=== PATIENT | female | born 1995 | race Caucasian/White ===

== ENCOUNTER 2018-05-23 23:44 | Emergency (ER) | payer BC ==
[2018-05-23 23:51] VITALS: RESP 18
[2018-05-24] MEDS ORDERED: IBUPROFEN 600 MG TAB PO STA (00:08)
[2018-05-24] MEDS ORDERED: ACETAMINOPHEN TAB 325 MG TAB PO STA (00:08)
--- NOTE | 2018-05-24 00:26 | XR ---
EXAMINATION TYPE: XR foot complete RT DATE OF EXAM: 05/24/2018 COMPARISON: NONE HISTORY: Foot pain TECHNIQUE: 3 views FINDINGS: Metatarsals are intact. I see no fracture nor dislocation. Joint spaces are normal. There a re no erosions. IMPRESSION: Negative right foot exam.
--- NOTE | 2018-05-24 00:38 | ED ---
Lower Extremity Injury HPI - General Chief Complaint: Extremity Injury, Lower Stated Complaint: R Foot Injury Time Seen by Provider: 05/23/18 23:53 Source: patient Mode of arrival: ambulatory Limitations: no limitations - History of Present Illness Initial Comments: 22-year-old female patient presents to the emergency department today for complaints of right foot pain. Patient states that around 7 PM this evening she dropped a bed frame on her foot. Patient states that she has been having pain to the dorsum of the right foot and with stepping down on the ball of her foot. Patient states she is able to ambulate, but with pain. She denies any numbness or tingling to the foot. Denies any previous foot injury. She denies any other injuries from this accident. Patient denies any headache, neck pain, back pain, chest pain, shortness of breath, dizziness, weakness, abdominal pain , nausea, vomiting, or difficulties with bowel movements or urination. She denies any chance of . - Related Data Allergies Allergy/AdvReac Type Severity Reaction Status Date / Time adhesive Allergy Rash/Hives Verified 05/23/18 23:52 amoxicillin Allergy Unknown Verified 05/23/18 23:51 Childhood clindamycin Allergy Abdominal Verified 05/23/18 23:51 Pain Penicillins Allergy Unknown Verified 05/23/18 23:51 Childhood Poultry [[place]] AdvReac Abdominal Verified 05/23/18 23:52 Pain Sulfa (Sulfonamide AdvReac Abdominal Verified 05/23/18 23:52 Antibiotics) Pain Review of Systems ROS Statement: Those systems with pertinent positive or pertinent negative responses have been documented in the HPI. ROS Other: All systems not noted in ROS Statement are negative. Past Medical History Additional Past Medical History / Comment(s): POTs History of Any Multi-Drug Resistant Organisms: None Reported Additional Past Surgical History / Comment(s): Endoscopy Past Psychological History: Anxiety, Depression Smoking Status: Current every day smoker Past Alcohol Use History: None Reported Past Drug Use History: None Reported General Exam Limitations: no limitations General appearance: alert, in no apparent distress, other (This is a well- developed, well-nourished adult female patient in no acute distress. Vital signs upon presentation are temperature 98.3F, pulse 84, respirations 18, blood pressure 126/75, pulse ox 99% on room air.) Eye exam: Present: normal appearance, PERRL, EOMI. Absent: scleral icterus, conjunctival injection, periorbital swelling Respiratory exam: Present: normal lung sounds bilaterally. Absent: respiratory distress, wheezes, rales, rhonchi, stridor Cardiovascular Exam: Present: regular rate, normal rhythm, normal heart sounds. Absent: systolic murmur, diastolic murmur, rubs, gallop, clicks Extremities exam: Present: normal inspection, full ROM, tenderness (Tenderness over the right first metatarsal and new right first MTP joint. There is mild soft tissue swelling with no ecchymosis or erythema. Skin is pink, warm, and dry. Cap refills less than 3 seconds. Pedal pulses are 2+ and equal bilaterally.), normal capillary refill. Absent: pedal edema, joint swelling, calf tenderness Neurological exam: Present: alert, oriented X3, CN II-XII intact Psychiatric exam: Present: normal affect, normal mood Skin exam: Present: warm, dry, intact, normal color. Absent: rash Course Vital Signs 05/23/18 23:47 Temperature 98.3 F Pulse Rate 84 Respiratory 18 Rate Blood Pressure 126/75 O2 Sat by Pulse 99 Oximetry Medical Decision Making - Medical Decision Making 22-year-old female patient presents to the emergency department today for evaluation of right foot pain after dropping a bed frame on it around 7 PM. Physical examination did reveal some mild soft tissue swelling and some tenderness over the first metatarsal and right first MTP joint. Patient had full range of motion and good neurovascular status. X-ray showed no acute fractures or dislocations. Did discuss findings and results with the patient. We did discuss rest, ice, and elevation. She is instructed take Tylenol and Motrin for pain relief. She is instructed to have repeat x-ray performed in 7- 10 days if pain symptoms persist. She is instructed to follow-up with her primary care physician for recheck in 1-2 days. Return parameters discussed in detail. She verbalizes understanding and agrees with this plan - Radiology Data Radiology results: report reviewed, image reviewed 3 views of the right foot are obtained. Metatarsals are intact. I see no fracture nor dislocation. Joint spaces are normal. There are no erosions. Impression by Dr. Rg shows negative right foot exam. Disposition Clinical Impression: Contusion of right foot Disposition: HOME SELF-CARE Condition: Good Instructions: Foot Contusion (ED) Additional Instructions: Rest foot. Apply ice and keep elevated. Follow up with primary care physician for recheck in 1-2 days. Have repeat xray performed in 7-10 days if pain symptoms persist. Return immediately for any new, worsening, or concerning symptoms. Is patient prescribed a controlled substance at d/c from ED?: No Referrals: Nonstaff,Physician [Primary Care Provider] - 1-2 days Time of Disposition: 00:38
[2018-05-24 01:06] VITALS: BP 106/63; PULSE 77; TEMP 98.1
== END 2018-05-24 01:06 | disposition home or self-care (01) ==
LOC: EC 23:44
DX: S90.31XA Contusion of right foot, initial encounter (principal); F17.200 Nicotine dependence, unspecified, uncomplicated; Z91.048 Other nonmedicinal substance allergy status; Z88.1 Allergy status to other antibiotic agents; Z88.0 Allergy status to penicillin; Z88.2 Allergy status to sulfonamides; Z91.018 Allergy to other foods; W20.8XXA Other cause of strike by thrown, projected or falling object, initial encounter
CPT/HCPCS: 99283

== ENCOUNTER 2018-06-02 02:09 | Emergency (ER) | payer BC ==
[2018-06-02 02:15] VITALS: BP 152/83; PULSE 114; RESP 23; TEMP 98.3
--- NOTE | 2018-06-02 02:37 | ED ---
ENT HPI - General Chief complaint: Dental/Oral Stated complaint: Dental pain Time Seen by Provider: 06/02/18 02:25 Source: patient Mode of arrival: ambulatory Limitations: no limitations - History of Present Illness Initial comments: Patient is a 22-year-old female who presents the emergency department today via private vehicle for evaluation of tooth pain. Patient reports approximately urine a half ago she fractured her tooth, she says she has had intermittent pain in that tooth since that time but she has had constant pain for the past 3 days. Patient reports that yesterday the pain became unbearable, caused her nausea and vomiting. She was evaluated an outside facility where she was given an IM injection of Toradol which she said completely resolved her tooth pain. Patient reports the pain is since come back and is persistent. Patient has tried taking Tylenol, Motrin using Orajel and warm salt water rinses with minimal relief in the pain. 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 Patient was evaluated by her business architect and has been medically cleared she's just awaiting her medical clearance paperwork to be faxed to her dentist for the tooth extraction. Patient was prescribed clindamycin by mouth at outside facility yesterday for possible infection surrounding the tooth. Patient reports the clinic by sitting gives her stomach aches that she hasn't been taking this medications. - Related Data Allergies Allergy/AdvReac Type Severity Reaction Status Date / Time adhesive Allergy Rash/Hives Verified 06/02/18 02:15 amoxicillin Allergy Unknown Verified 06/02/18 02:15 Childhood clindamycin Allergy Abdominal Verified 06/02/18 02:15 Pain Penicillins Allergy Unknown Verified 06/02/18 02:15 Childhood Poultry [[place]] AdvReac Abdominal Verified 06/02/18 02:15 Pain Sulfa (Sulfonamide AdvReac Abdominal Verified 06/02/18 02:15 Antibiotics) Pain Review of Systems ROS Statement: Those systems with pertinent positive or pertinent negative responses have been documented in the HPI. ROS Other: All systems not noted in ROS Statement are negative. Past Medical History Additional Past Medical History / Comment(s): POTs History of Any Multi-Drug Resistant Organisms: None Reported Additional Past Surgical History / Comment(s): Endoscopy Past Psychological History: Anxiety, Depression Smoking Status: Current every day smoker Past Alcohol Use History: None Reported Past Drug Use History: None Reported General Exam - General Exam Comments Initial Comments: Physical Exam GENERAL: Patient is well-developed and well-nourished. Appears very uncomfortable HENT: Normocephalic, Atraumatic. Poor dentition, multiple dental caries, fracture of tooth #15 minimal surrounding erythema EYES: PERRL, EOMI PULMONARY: Unlabored respirations. CARDIOVASCULAR: Tachycardia ABDOMEN: Nondistended SKIN: Skin is clear with no lesions or rashes and otherwise unremarkable. : Deferred NEUROLOGIC: Patient is alert and oriented x3. Moving all extremities spontaneously MUSCULOSKELETAL: Normal extremities with adequate strength and full range of motion. No lower extremity swelling or edema. No calf tenderness. PSYCHIATRIC: Normal psychiatric evaluation. Limitations: no limitations Limitations: no limitations Course Vital Signs 06/02/18 02:13 Temperature 98.3 F Pulse Rate 114 H Respiratory 23 Rate Blood Pressure 152/83 O2 Sat by Pulse 99 Oximetry Medical Decision Making - Medical Decision Making The patient was seen and evaluated, history was obtained from the patient and father bedside Patient with a fractured tooth for approximately year and half, awaiting medical clearance for dental extraction Patient with 3 days of worsening tooth pain evaluated and outside facility treated with Toradol and prescribed clindamycin Physical exam does reveal a broken tooth with possible surrounding erythema I discussed pain management options with patient including IM Toradol which she received yesterday as well as offering a dental block. Patient declined a dental block. She states that she hates feeling as though her face is numb. I had a long conversation with the patient and the father, father encouraged her to get the dental block to relieve her pain however she adamantly declined. I am Toradol was ordered Patient asking for pain medications for discharge. I eyes her that intubating will be treated with Tylenol and Motrin as well as supportive care. I again offered to block the tooth but she declined All questions pertaining to care were answered best my ability return parameters were discussed the patient was discharged home in stable condition Disposition Clinical Impression: Fracture of tooth Disposition: HOME SELF-CARE Instructions: Toothache (ED) Is patient prescribed a controlled substance at d/c from ED?: No Referrals: Nonstaff,Physician [Primary Care Provider] - 1-2 days
[2018-06-02] MEDS ORDERED: KETOROLAC 30 MG/ML 1 ML VIAL IM STA (02:46)
== END 2018-06-02 03:09 | disposition home or self-care (01) ==
LOC: EC 02:09
DX: S02.5XXA Fracture of tooth (traumatic), initial encounter for closed fracture (principal); F17.200 Nicotine dependence, unspecified, uncomplicated; Z91.048 Other nonmedicinal substance allergy status; Z88.0 Allergy status to penicillin; Z88.1 Allergy status to other antibiotic agents; Z88.2 Allergy status to sulfonamides; Z53.29 Procedure and treatment not carried out because of patient's decision for other reasons; X58.XXXA Exposure to other specified factors, initial encounter
CPT/HCPCS: 99282; 96372; J1885

== ENCOUNTER 2018-12-17 14:26 | Emergency (ER) | payer BC ==
[2018-12-17 15:07] VITALS: RESP 18
[2018-12-17 15:24] LABS: Appearance,Urine Cloudy (Clear); Bilirubin,Urine Negative (Negative); Blood,Urine Moderate (Negative); Color,Urine Yellow; Glucose,Urine (UA) Negative (Negative); Ketones,Urine Negative (Negative); Leukocyte Esterase,Urine Large (Negative); Mucus,Urine Rare /hpf; Nitrite,Urine Negative (Negative); PH, Urine 7.5 (5.0-8.0); Protein,Urine 1+ (Negative); RBC,Urine >182 /hpf (0-5); Specific Gravity,Urine 1.019 (1.001-1.035); Squamous Epithelial Cell,Urine 5 /hpf (0-4); Urobilinogen,Urine <2.0 mg/dL (<2.0)
[2018-12-17] MEDS ORDERED: cefTRIAXone 1,000 MG VIAL (IM USE) IM STA (15:46)
--- NOTE | 2018-12-17 16:43 | ED ---
Female Urogenital HPI - General Chief complaint: Urogenital Stated complaint: UTI Time Seen by Provider: 12/17/18 15:14 Source: patient Mode of arrival: ambulatory Limitations: no limitations - History of Present Illness Initial comments: 23-year-old female presenting today for dysuria urgency frequency x 1 day. Patient states that she has had urgency frequency dysuria as well as mid abdominal pressure that began at 7 AM this morning. Patient was concerned she had a urinary tract infection. Patient states she has had some vaginal discharge denies any pain with sex. Patient denies any vaginal bleeding patient denies . Patient is sexually active. Remaining review of systems negative patient has a fever or night sweats. Patient denies back pain. Remaining ROS (-). Pt appears well upon arrival. - Related Data Home Medications Medication Instructions Recorded Confirmed DULoxetine HCL [Cymbalta] 60 mg PO DAILY 12/17/18 12/17/18 Fludrocortisone [Florinef] 0.2 mg PO BID 12/17/18 12/17/18 Omeprazole 40 mg PO DAILY 12/17/18 12/17/18 Previous Rx's Medication Instructions Recorded Cephalexin [Keflex] 500 mg PO Q12HR 5 Days #10 cap 12/17/18 Allergies Allergy/AdvReac Type Severity Reaction Status Date / Time adhesive Allergy Rash/Hives Verified 12/17/18 15:25 amoxicillin Allergy Unknown Verified 12/17/18 15:25 Childhood clindamycin Allergy Abdominal Verified 12/17/18 15:25 Pain Penicillins Allergy Unknown Verified 12/17/18 15:25 Childhood Poultry [[place]] AdvReac Abdominal Verified 12/17/18 15:25 Pain Sulfa (Sulfonamide AdvReac Abdominal Verified 12/17/18 15:25 Antibiotics) Pain Review of Systems ROS Statement: Those systems with pertinent positive or pertinent negative responses have been documented in the HPI. ROS Other: All systems not noted in ROS Statement are negative. Past Medical History Additional Past Medical History / Comment(s): POTs History of Any Multi-Drug Resistant Organisms: None Reported Additional Past Surgical History / Comment(s): Endoscopy Past Psychological History: Anxiety, Depression Smoking Status: Current every day smoker Past Alcohol Use History: None Reported Past Drug Use History: None Reported General Exam - General Exam Comments Initial Comments: General: The patient is awake and alert, in no distress, and does not appear acutely ill. Eye: Pupils are equal, round and reactive to light, extra-ocular movements are intact. No nystagmus. There is normal conjunctiva bilaterally. No signs of icterus. Ears, nose, mouth and throat: There are moist mucous membranes and no oral lesions. Neck: The neck is supple, there is no tenderness or JVD. Cardiovascular: There is a regular rate and rhythm. No murmur, rub or gallop is appreciated. Respiratory: Lungs are clear to auscultation, respirations are non-labored, breath sounds are equal. No wheezes, stridor, rales, or rhonchi. Gastrointestinal: Soft, non-distended, non-tender abdomen without masses or organomegaly noted. There is no rebound or guarding present. No CVA tenderness. Bowel sounds are unremarkable. Pelvic: No external vaginal lesions. Normal female hair pattern. Imbler well rugated vaginal mucosa. No blood in vaginal vault. Small amount of scant discharge no odor. No adnexal or cervical motion tenderness. Musculoskeletal: Normal ROM, no tenderness. Strength 5/5. Sensation intact. Pulses equal bilaterally 2+. Neurological: A&O x 3. CN II-XII intact, There are no obvious motor or sensory deficits. Coordination appears grossly intact. Speech is normal. Skin: Skin is warm and dry and no rashes or lesions are noted. Psychiatric: Cooperative, appropriate mood & affect, normal judgment. Limitations: no limitations Course Vital Signs 12/17/18 12/17/18 15:03 17:40 Temperature 98.7 F 98.3 F Pulse Rate 90 101 H Respiratory 18 18 Rate Blood Pressure 107/71 120/64 O2 Sat by Pulse 97 97 Oximetry Medical Decision Making - Medical Decision Making Well appearing 23 year female presented for dysuria urgency frequency. Urinalysis reveals findings consistent with possible hemorrhagic cystitis. She'll was given 1 g of ceftriaxone and monitored in the emergency department for ALLERGIC reaction given penicillin ALLERGY of unknown reaction she states she had as a child and states she does not believe his anaphylaxis. Pt is no CVA or back tenderness. Patient has no pain to the patient of the abdomen no adnexal tenderness on pelvic exam. Patient states she has no concern for sexual transmitted disease. Cultures pending. Patient will be treated with Keflex outpatient, and f/u with primary care provider in next 1-2 days. Patient is to return for fever, back pain, or any worsening symptoms. Patient verbalizes understanding. Patient was discharged appearing well after discussing the case/care plan with Dr. Haddad. - Lab Data Lab Results 12/17/18 12/17/18 12/17/18 Range/Units 15:00 15:00 17:08 Urine Color Yellow Urine Appearance Cloudy H (Clear) Urine pH 7.5 (5.0-8.0) Ur Specific [place] 1.019 (1.001-1.035) Urine Protein 1+ H (Negative) Urine Glucose (UA) Negative (Negative) Urine Ketones Negative (Negative) Urine Blood Moderate H (Negative) Urine Nitrite Negative (Negative) Urine Bilirubin Negative (Negative) Urine Urobilinogen <2.0 (<2.0) mg/dL Ur Leukocyte Esterase Large H (Negative) Urine RBC >182 H (0-5) /hpf Urine WBC >182 H (0-5) /hpf Urine WBC Clumps Many H (None) /hpf Ur Squamous Epith Cells 5 H (0-4) /hpf Urine Mucus Rare H (None) /hpf Urine HCG, Qual Not Detected (Not Detectd) Trichomonas Ag (Rapid) Negative (Negative) Disposition Clinical Impression: UTI (urinary tract infection) Disposition: HOME SELF-CARE Condition: Good Instructions (If sedation given, give patient instructions): Urinary Tract Infection in Women (ED) Additional Instructions: Please use medication as discussed. Please follow-up with family doctor in the next 2 days. Please return to emergency room if the symptoms increase or worsen or for any other concerns. Prescriptions: Cephalexin [Keflex] 500 mg PO Q12HR 5 Days #10 cap Is patient prescribed a controlled substance at d/c from ED?: No Referrals: Nonstaff,Physician [Primary Care Provider[facility] Time of Disposition: 16:42
[2018-12-17 17:42] VITALS: BP 120/64; PULSE 101; TEMP 98.3
[2018-12-18 15:16] LABS: C. trachomatis,PCR Negative (Neg,Equiv); Chlamydia trachomatis Source Vagina
[2018-12-18 15:19] LABS: N. gonorrhoeae,PCR Negative (Neg,Equiv); Neisseria Source Vagina
== END 2018-12-17 17:42 | disposition home or self-care (01) ==
LOC: EC 14:26
DX: N39.0 Urinary tract infection, site not specified (principal); F41.9 Anxiety disorder, unspecified; F32.9 Major depressive disorder, single episode, unspecified; F17.200 Nicotine dependence, unspecified, uncomplicated; Z79.899 Other long term (current) drug therapy; Z88.0 Allergy status to penicillin; Z88.1 Allergy status to other antibiotic agents; Z88.2 Allergy status to sulfonamides; Z91.018 Allergy to other foods; Z91.048 Other nonmedicinal substance allergy status
CPT/HCPCS: 81001; 81025; 87808; 87491; 87591; 87070; 87086; 87205; 99283; 96372; J0696

== ENCOUNTER 2018-12-24 20:44 | Emergency (ER) | payer BC ==
[2018-12-24] MEDS ORDERED: ACETAMINOPHEN TAB 500 MG TAB PO STA (21:30)
--- NOTE | 2018-12-24 21:48 | ED ---
General Adult HPI - General Chief complaint: Upper Respiratory Infection Stated complaint: NVD Time Seen by Provider: 12/24/18 21:07 Source: patient Mode of arrival: ambulatory Limitations: no limitations - History of Present Illness Initial comments: Patient is a 23-year-old female presenting to emergency department with fever, chills and generalized body aches. Patient reports the symptoms started 5 days ago and is progressively increasing severity. Patient reports bilateral clear rhinorrhea, otalgia but denies sore throat. Patient reports a mild headache but states that is her baseline due to history of migraines. Patient reports intermittent mild nausea but no vomiting or diarrhea. Patient reports taking DayQuil minimal improvement. Patient reports a nonproductive dry cough that has developed over the last 3 days. Patient also states that she smokes and has asthma. Patient denies chest pain, chest tightness, chest palpitations or blurry vision. patient denies urinary or vaginal symptoms. Patient denies flank or abdominal pain. - Related Data Home Medications Medication Instructions Recorded Confirmed DULoxetine HCL [Cymbalta] 60 mg PO DAILY 12/17/18 12/24/18 Fludrocortisone [Florinef] 0.2 mg PO BID 12/17/18 12/24/18 Omeprazole 40 mg PO DAILY 12/17/18 12/24/18 ALPRAZolam [Xanax] 0.25 mg PO DAILY PRN 12/24/18 12/24/18 Cephalexin [Keflex] 500 mg PO DAILY 12/24/18 12/24/18 Previous Rx's Medication Instructions Recorded methylPREDNISolone [Medrol Dose 4 mg PO DIRECTED #1 pack 12/24/18 Pack] Allergies Allergy/AdvReac Type Severity Reaction Status Date / Time adhesive Allergy Rash/Hives Verified 12/24/18 20:58 amoxicillin Allergy Unknown Verified 12/24/18 20:58 Childhood Penicillins Allergy Unknown Verified 12/24/18 20:58 Childhood clindamycin AdvReac Abdominal Verified 12/24/18 20:58 Pain Poultry [[place]] AdvReac Abdominal Verified 12/24/18 20:58 Pain Sulfa (Sulfonamide AdvReac Abdominal Verified 12/24/18 20:58 Antibiotics) Pain Review of Systems ROS Statement: Those systems with pertinent positive or pertinent negative responses have been documented in the HPI. ROS Other: All systems not noted in ROS Statement are negative. Past Medical History Additional Past Medical History / Comment(s): POTs History of Any Multi-Drug Resistant Organisms: None Reported Additional Past Surgical History / Comment(s): Endoscopy Past Psychological History: Anxiety, Depression Smoking Status: Current every day smoker Past Alcohol Use History: None Reported Past Drug Use History: Marijuana General Exam Limitations: no limitations General appearance: alert, in no apparent distress Head exam: Present: atraumatic, normocephalic, normal inspection Eye exam: Present: normal appearance, PERRL, EOMI Pupils: Present: normal accommodation ENT exam: Present: normal exam, normal oropharynx, mucous membranes moist, TM's normal bilaterally (No bulging or erythema) Neck exam: Present: normal inspection, full ROM. Absent: lymphadenopathy Respiratory exam: Present: normal lung sounds bilaterally. Absent: wheezes, rales, rhonchi, stridor Cardiovascular Exam: Present: regular rate, normal rhythm, normal heart sounds GI/Abdominal exam: Present: soft Extremities exam: Present: normal inspection, full ROM Back exam: Present: normal inspection. Absent: CVA tenderness (R), CVA tenderness (L) Neurological exam: Present: alert, oriented X3 Psychiatric exam: Present: normal affect, normal mood Skin exam: Present: warm, intact, normal color Course Vital Signs 12/24/18 12/24/18 20:45 21:42 Temperature 102 F H Pulse Rate 107 H Respiratory 20 20 Rate Blood Pressure 111/57 O2 Sat by Pulse 97 Oximetry Medical Decision Making - Medical Decision Making Patient is a 23-year-old female presented to emergency department with fever and general body aches. Patient tested positive for influenza B. Patient will be treated with Decadron and discharged with a Medrol Dosepak. Patient advised to follow with primary care. Patient advised to stay hydrated and rest. Patient advised to return to emergency department as it is worsen. Case discussed with physician. - Lab Data Lab Results 12/24/18 Range/Units 21:28 Influenza Type A RNA Not Detected (Not Detectd) Influenza Type B (PCR) Detected H (Not Detectd) Disposition Clinical Impression: Influenza Disposition: HOME SELF-CARE Condition: Stable Instructions (If sedation given, give patient instructions): Influenza (DC) Additional Instructions: History prescribed medication as directed. Please return to emergency department if symptoms worsen. Please follow with primary care. Prescriptions: methylPREDNISolone [Medrol Dose Pack] 4 mg PO DIRECTED #1 pack Is patient prescribed a controlled substance at d/c from ED?: No Referrals: Nonstaff,Physician [Primary Care Provider] - 1-2 days Time of Disposition: 22:44
--- NOTE | 2018-12-24 21:55 | XR ---
EXAMINATION TYPE: XR chest 2V DATE OF EXAM: 12/24/2018 COMPARISON: NONE HISTORY: Cough TECHNIQUE: Frontal and lateral views of the chest are obtained. FINDINGS: Heart and mediastinum are normal. Lungs are clear. Diaphragm is normal. Bony thorax appear s normal. IMPRESSION: Normal chest.
[2018-12-24] MEDS ORDERED: DEXAMETHASONE SOD PHOSPHATE 10 MG/ML 1 ML VIAL IM STA (22:32)
[2018-12-24 23:22] VITALS: TEMP 100
[2018-12-24 23:36] VITALS: BP 136/68; PULSE 97; RESP 18
== END 2018-12-24 23:36 | disposition home or self-care (01) ==
LOC: EC 20:44
DX: J10.1 Influenza due to other identified influenza virus with other respiratory manifestations (principal); J45.909 Unspecified asthma, uncomplicated; F32.9 Major depressive disorder, single episode, unspecified; F41.9 Anxiety disorder, unspecified; F17.200 Nicotine dependence, unspecified, uncomplicated; Z88.0 Allergy status to penicillin; Z88.1 Allergy status to other antibiotic agents; Z88.2 Allergy status to sulfonamides; Z91.048 Other nonmedicinal substance allergy status; Z79.52 Long term (current) use of systemic steroids; Z79.899 Other long term (current) drug therapy; Z86.69 Personal history of other diseases of the nervous system and sense organs
CPT/HCPCS: 87502; 71046; 99283; 96372; J1100

== ENCOUNTER 2018-12-29 09:34 | Emergency (ER) | payer BC ==
[2018-12-29 09:41] VITALS: BP 120/77; TEMP 98.3
[2018-12-29] MEDS ORDERED: IPRATROPIUM-ALBUTEROL 3 ML NEB INHALATION STA (10:11)
--- NOTE | 2018-12-29 10:12 | ED ---
General Adult HPI - General Chief complaint: Upper Respiratory Infection Stated complaint: cough Time Seen by Provider: 12/29/18 10:06 Source: patient, RN notes reviewed Mode of arrival: ambulatory Limitations: no limitations - History of Present Illness Initial comments: 23-year-old female presents to the emergency department for a chief complaint of cough 1 week. Patient states that she was diagnosed with influenza a 1 week ago. States that since then she has not been able to stop coughing. States that when she gets into coughing fits she feels short of breath. Denies shortness of breath at baseline. Denies chest pain. Patient states she is no longer having any fevers. States that her roommate has pneumonia so she is concerned she could have this. Patient does admit to history of asthma as a child but has not had asthma in adult years. Patient has no other complaints at this time including shortness of breath, chest pain, abdominal pain, nausea or vomiting, headache, or visual changes. - Related Data Home Medications Medication Instructions Recorded Confirmed DULoxetine HCL [Cymbalta] 60 mg PO DAILY 12/17/18 12/29/18 Fludrocortisone [Florinef] 0.2 mg PO BID 12/17/18 12/29/18 Omeprazole 40 mg PO DAILY 12/17/18 12/29/18 ALPRAZolam [Xanax] 0.25 mg PO DAILY PRN 12/24/18 12/29/18 methylPREDNISolone [Medrol Dose See Taper PO DIRECTED 12/29/18 12/29/18 Pack] Previous Rx's Medication Instructions Recorded Albuterol Inhaler [Ventolin Hfa 1 - 2 puff INHALATION Q6HR PRN #1 12/29/18 Inhaler] inhaler Allergies Allergy/AdvReac Type Severity Reaction Status Date / Time adhesive Allergy Rash/Hives Verified 12/29/18 10:28 amoxicillin Allergy Unknown Verified 12/29/18 10:28 Childhood Penicillins Allergy Unknown Verified 12/29/18 10:28 Childhood clindamycin AdvReac Abdominal Verified 12/29/18 10:28 Pain Poultry [[place]] AdvReac Abdominal Verified 12/29/18 10:28 Pain Sulfa (Sulfonamide AdvReac Abdominal Verified 12/29/18 10:28 Antibiotics) Pain Review of Systems ROS Statement: Those systems with pertinent positive or pertinent negative responses have been documented in the HPI. ROS Other: All systems not noted in ROS Statement are negative. Past Medical History Additional Past Medical History / Comment(s): POTs History of Any Multi-Drug Resistant Organisms: None Reported Additional Past Surgical History / Comment(s): Endoscopy Past Psychological History: Anxiety, Depression Smoking Status: Current every day smoker Past Alcohol Use History: None Reported Past Drug Use History: Marijuana General Exam Limitations: no limitations General appearance: alert, in no apparent distress Head exam: Present: atraumatic, normocephalic, normal inspection Eye exam: Present: normal appearance, PERRL, EOMI. Absent: scleral icterus, conjunctival injection, periorbital swelling ENT exam: Present: normal exam, normal oropharynx, mucous membranes moist, TM's normal bilaterally, normal external ear exam Neck exam: Present: normal inspection, full ROM. Absent: tenderness, meningismus, lymphadenopathy Respiratory exam: Present: wheezes (wheezing noted right Right upper and lower lobes). Absent: respiratory distress, rales, rhonchi, stridor Cardiovascular Exam: Present: regular rate, normal rhythm, normal heart sounds. Absent: systolic murmur, diastolic murmur, rubs, gallop, clicks Neurological exam: Present: alert, oriented X3, CN II-XII intact Psychiatric exam: Present: normal affect, normal mood Course Vital Signs 12/29/18 12/29/18 12/29/18 09:40 10:33 10:45 Temperature 98.3 F Pulse Rate 85 72 76 Respiratory 24 Rate Blood Pressure 120/77 O2 Sat by Pulse 95 Oximetry 12/29/18 11:00 Temperature Pulse Rate Respiratory 20 Rate Blood Pressure O2 Sat by Pulse Oximetry Medical Decision Making - Medical Decision Making 23-year-old female presents to the emergency department for cough 1 week. Patient diagnosed with influenza a 1 week ago. Patient does have a history of asthma. It is her stable. Patient is 95% on room air. Patient is noted to be coughing. No shortness of breath or respiratory distress. On exam patient does have wheezing noted in the right lung. X-ray shows no acute cardiopulmonary process. Patient was given breathing treatment which she states helped significantly. Patient does not have an inhaler or nebulizer at home. Patient also given Decadron here given wheezing and history of asthma. Patient will be given inhaler. Patient will follow up with primary care. She has an appointment in 3 days. She'll return here if she has any worsening symptoms. Disposition Clinical Impression: Cough Disposition: HOME SELF-CARE Condition: Good Instructions (If sedation given, give patient instructions): Acute Cough (ED) Additional Instructions: Please use inhaler. Please follow-up with primary care in 1-2 days. Please return here to the emergency department if you have any worsening symptoms. Prescriptions: Albuterol Inhaler [Ventolin Hfa Inhaler] 1 - 2 puff INHALATION Q6HR PRN #1 inhaler PRN Reason: Shortness Of Breath Is patient prescribed a controlled substance at d/c from ED?: No Referrals: Nonstaff,Physician [Primary Care Provider] - 1-2 days Time of Disposition: 11:10
--- NOTE | 2018-12-29 10:42 | XR ---
EXAMINATION TYPE: XR chest 2V DATE OF EXAM: 12/29/2018 COMPARISON: 12/24/2018 HISTORY: Chest pain TECHNIQUE: Frontal and lateral views of the chest are obtained. FINDINGS: There is no focal air space opacity, pleural effusion, or pneumothorax seen. The cardiac silhouette size is within normal limits. The osseous structures are intact. IMPRESSION: No acute cardiopulmonary process.
[2018-12-29] MEDS ORDERED: DEXAMETHASONE 4 MG TAB PO STA (10:44)
[2018-12-29 10:46] VITALS: PULSE 76
[2018-12-29 11:04] VITALS: RESP 20
== END 2018-12-29 11:56 | disposition home or self-care (01) ==
LOC: EC 09:34
DX: R05 Cough (principal); R06.2 Wheezing; F32.9 Major depressive disorder, single episode, unspecified; F41.9 Anxiety disorder, unspecified; F17.200 Nicotine dependence, unspecified, uncomplicated; Z79.899 Other long term (current) drug therapy; Z88.0 Allergy status to penicillin; Z88.1 Allergy status to other antibiotic agents; Z88.2 Allergy status to sulfonamides; Z91.018 Allergy to other foods; Z91.048 Other nonmedicinal substance allergy status
CPT/HCPCS: 94640; 71046; 99283; J8540

== ENCOUNTER 2020-09-02 00:38 | Emergency (ER) | payer BC ==
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
[2020-09-02 02:36] LABS: Appearance,Urine Clear (Clear); Color,Urine Colorless
[2020-09-02 02:37] LABS: Bilirubin,Urine Negative (Negative); Blood,Urine Negative (Negative); Glucose,Urine (UA) Negative (Negative); Ketones,Urine Negative (Negative); Leukocyte Esterase,Urine Negative (Negative); Nitrite,Urine Negative (Negative); PH, Urine 5.5 (5.0-8.0); Protein,Urine Negative (Negative); Specific Gravity,Urine 1.002 (1.001-1.035); Urobilinogen,Urine <2.0 mg/dL (<2.0)
[2020-09-02 03:01] LABS: Amphetamine Screen,Urine Not Detected (NotDetected); Barbiturate Screen,Urine Not Detected (NotDetected); Benzodiazepines Screen,Urine Not Detected (NotDetected); Cocaine Screen,Urine Not Detected (NotDetected); Methadone Screen, Urine Not Detected (NotDetected); Opiate Screen,Urine Not Detected (NotDetected); Oxycodone Screen, Urine Not Detected (NotDetected); Phencyclidine Screen,Urine Not Detected (NotDetected); Tricyclic Antidepressant,Urine Not Detected (NotDetected); Urn Cannabinoid Scrn Not Detected (NotDetected)
[2020-09-02 07:33] VITALS: BP 135/72; PULSE 84; RESP 18; TEMP 97.9
== END 2020-09-02 07:28 | disposition home or self-care (01) ==
LOC: EC 00:38
DX: F43.21 Adjustment disorder with depressed mood (principal); F32.9 Major depressive disorder, single episode, unspecified; F41.9 Anxiety disorder, unspecified; Z79.899 Other long term (current) drug therapy; F17.200 Nicotine dependence, unspecified, uncomplicated; Z88.0 Allergy status to penicillin; Z88.1 Allergy status to other antibiotic agents; Z88.2 Allergy status to sulfonamides; Z91.048 Other nonmedicinal substance allergy status
CPT/HCPCS: 80306; 81003; 82075; 99285

== ENCOUNTER 2021-03-27 15:09 | Emergency (ER) | payer BC ==
[2021-03-27 15:17] VITALS: RESP 20
--- NOTE | 2021-03-27 15:43 | ED ---
General Adult HPI - General Chief complaint: Chest Pain Stated complaint: Chest Pain Time Seen by Provider: 03/27/21 15:30 Source: patient, RN notes reviewed, old records reviewed Mode of arrival: ambulatory Limitations: no limitations - History of Present Illness Initial comments: 25-year-old female presenting for evaluation of cough and nasal congestion. Patient has had symptoms for the past several days. She's also had some GI cramping. She said fever and myalgias. She's had sore throat, nasal congestion, cough, upper chest pain. No central radiating chest pain. She has been vaccinated against coronavirus in December of this year with [employer]. - Related Data Home Medications Medication Instructions Recorded Confirmed DULoxetine HCL [Cymbalta] 60 mg PO DAILY 12/17/18 12/29/18 Fludrocortisone [Florinef] 0.2 mg PO BID 12/17/18 12/29/18 Omeprazole 40 mg PO DAILY 12/17/18 12/29/18 ALPRAZolam [Xanax] 0.25 mg PO DAILY PRN 12/24/18 12/29/18 methylPREDNISolone [Medrol Dose See Taper PO DIRECTED 12/29/18 12/29/18 Pack] Previous Rx's Medication Instructions Recorded Albuterol Inhaler (Mhu) [Ventolin 1 - 2 puff INHALATION Q6HR PRN #1 12/29/18 Hfa Inhaler (Mhu)] inhaler Benzonatate [Tessalon Perles] 200 mg PO Q8H PRN #15 capsule 12/29/18 methylPREDNISolone Dose Pack 4 mg PO DIRECTED #21 packet 03/27/21 [Medrol Dose Pack] Allergies Allergy/AdvReac Type Severity Reaction Status Date / Time adhesive Allergy Rash/Hives Verified 03/27/21 15:17 amoxicillin Allergy Unknown Verified 03/27/21 15:17 Childhood Penicillins Allergy Unknown Verified 03/27/21 15:17 Childhood clindamycin AdvReac Abdominal Verified 03/27/21 15:17 Pain Poultry [[place]] AdvReac Abdominal Verified 03/27/21 15:17 Pain Sulfa (Sulfonamide AdvReac Abdominal Verified 03/27/21 15:17 Antibiotics) Pain Review of Systems ROS Statement: Those systems with pertinent positive or pertinent negative responses have been documented in the HPI. ROS Other: All systems not noted in ROS Statement are negative. Past Medical History Additional Past Medical History / Comment(s): POTs History of Any Multi-Drug Resistant Organisms: None Reported Additional Past Surgical History / Comment(s): Endoscopy Past Psychological History: Anxiety, Depression Smoking Status: Current every day smoker Past Alcohol Use History: Occasional Past Drug Use History: Marijuana General Exam Limitations: no limitations General appearance: alert, in no apparent distress Head exam: Present: atraumatic, normocephalic Eye exam: Present: normal appearance, PERRL ENT exam: Absent: normal oropharynx (Pharyngeal erythema, no tonsillar swelling or exudate, nasal congestion and rhinorrhea) Respiratory exam: Present: rhonchi (Scattered rhonchi bilaterally). Absent: respiratory distress, wheezes Cardiovascular Exam: Present: normal rhythm, tachycardia GI/Abdominal exam: Present: soft. Absent: distended, tenderness, guarding Extremities exam: Present: normal inspection, normal capillary refill. Absent: pedal edema Neurological exam: Present: alert, oriented X3, CN II-XII intact. Absent: motor sensory deficit Psychiatric exam: Present: normal affect, normal mood Skin exam: Present: warm, dry, intact. Absent: cyanosis, diaphoretic Course Vital Signs 03/27/21 15:14 Temperature 98.9 F Pulse Rate 117 H Respiratory 20 Rate Blood Pressure 134/65 O2 Sat by Pulse 98 Oximetry Medical Decision Making - Medical Decision Making 25-year-old female with cough and congestion, sore throat, viral sounding illness. Chest x-ray clear, free of pneumonia. Patient afebrile and otherwise well-appearing. Urinalysis urine and coronavirus testing is negative. Patient will be treated for an acute bronchitis likely viral in nature. Given Medrol Dosepak. - Lab Data Lab Results 03/27/21 03/27/21 03/27/21 Range/Units 15:55 15:55 16:32 Urine Color Yellow Urine Appearance Clear (Clear) Urine pH 7.0 (5.0-8.0) Ur Specific [place] 1.013 (1.001-1.035) Urine Protein Negative (Negative) Urine Glucose (UA) Negative (Negative) Urine Ketones Negative (Negative) Urine Blood Negative (Negative) Urine Nitrite Negative (Negative) Urine Bilirubin Negative (Negative) Urine Urobilinogen 2.0 (<2.0) mg/dL Ur Leukocyte Esterase Trace H (Negative) Urine RBC 1 (0-5) /hpf Urine WBC 2 (0-5) /hpf Ur Squamous Epith Cells 3 (0-4) /hpf Urine Mucus Rare H (None) /hpf Urine HCG, Qual Not Detected (Not Detectd) Coronavirus (PCR) Not Detected (Not Detectd) Disposition Clinical Impression: Bronchitis Disposition: HOME SELF-CARE Condition: Good Instructions (If sedation given, give patient instructions): Acute Bronchitis (ED) Prescriptions: methylPREDNISolone Dose Pack [Medrol Dose Pack] 4 mg PO DIRECTED #21 packet Is patient prescribed a controlled substance at d/c from ED?: No Referrals: Nonstaff,Physician [Primary Care Provider] - 1-2 days Jas Barnes [STAFF PHYSICIAN] - 1-2 days Time of Disposition: 17:15
[2021-03-27 16:03] LABS: Appearance,Urine Clear (Clear); Bilirubin,Urine Negative (Negative); Blood,Urine Negative (Negative); Color,Urine Yellow; Glucose,Urine (UA) Negative (Negative); Ketones,Urine Negative (Negative); Leukocyte Esterase,Urine Trace (Negative); Mucus,Urine Rare /hpf; Nitrite,Urine Negative (Negative); Protein,Urine Negative (Negative); RBC,Urine 1 /hpf (0-5); Specific Gravity,Urine 1.013 (1.001-1.035); Squamous Epithelial Cell,Urine 3 /hpf (0-4); WBC,Urine 2 /hpf (0-5)
--- NOTE | 2021-03-27 16:09 | XR ---
EXAMINATION TYPE: XR chest 2V DATE OF EXAM: 03/27/2021 COMPARISON: Chest x-ray December 29, 2018 HISTORY: Cough and chest pain. TECHNIQUE: Frontal and lateral views of the chest are obtained. FINDINGS: There is no suspicious focal air space opacity, pleural effusion, or pneumothorax seen. T he cardiac silhouette size is stable and within normal limits. The osseous structures are intact. IMPRESSION: No acute process. No significant change from prior.
[2021-03-27 17:47] VITALS: BP 131/88; PULSE 105; TEMP 99
== END 2021-03-27 17:48 | disposition home or self-care (01) ==
LOC: EC 15:09
DX: J40 Bronchitis, not specified as acute or chronic (principal); F17.200 Nicotine dependence, unspecified, uncomplicated; F12.90 Cannabis use, unspecified, uncomplicated; F32.9 Major depressive disorder, single episode, unspecified; F41.9 Anxiety disorder, unspecified; Z79.51 Long term (current) use of inhaled steroids; Z79.899 Other long term (current) drug therapy
CPT/HCPCS: 71046; 81001; 81025; 87635; 99285

== ENCOUNTER 2021-04-21 18:04 | Emergency (ER) | payer OTHER, BC ==
[2021-04-21 18:50] VITALS: RESP 18
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
--- NOTE | 2021-04-21 20:24 | XR ---
EXAMINATION TYPE: XR ankle complete LT DATE OF EXAM: 04/21/2021 COMPARISON: NONE HISTORY: Pain TECHNIQUE: 3 views FINDINGS: Ankle mortise is anatomic. I see no fracture nor dislocation. Joint spaces are normal. IMPRESSION: Negative left ankle exam.
--- NOTE | 2021-04-21 20:25 | XR ---
EXAMINATION TYPE: XR finger LT DATE OF EXAM: 04/21/2021 COMPARISON: NONE HISTORY: Pain TECHNIQUE: 3 views FINDINGS: I see no fracture nor dislocation. Thumb is intact. Joint spaces are normal. IMPRESSION: Negative left thumb exam. No fracture.
--- NOTE | 2021-04-21 20:27 | XR ---
EXAMINATION TYPE: XR clavicle bilateral DATE OF EXAM: 04/21/2021 COMPARISON: NONE HISTORY: Pain TECHNIQUE: 4 views FINDINGS: I see no fracture nor dislocation. There is slight widening of the left AC joint space comp ared to the right. Glenohumeral joints are intact. IMPRESSION: No fracture seen. Slight widening of the left AC joint space could relate to some ligamen tous injury of uncertain age. Joint spaces 4 mm on the left side and 2.5 mm on the right side.
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
[2021-04-21 21:20] VITALS: BP 137/77; PULSE 97; TEMP 98.6
== END 2021-04-21 21:20 | disposition home or self-care (01) ==
LOC: EC 18:04
DX: S40.012A Contusion of left shoulder, initial encounter (principal); S80.812A Abrasion, left lower leg, initial encounter; S50.812A Abrasion of left forearm, initial encounter; M25.511 Pain in right shoulder; M79.645 Pain in left finger(s); F32.9 Major depressive disorder, single episode, unspecified; F41.9 Anxiety disorder, unspecified; F17.200 Nicotine dependence, unspecified, uncomplicated; V89.2XXA Person injured in unspecified motor-vehicle accident, traffic, initial encounter; Y92.410 Unspecified street and highway as the place of occurrence of the external cause
CPT/HCPCS: 70450; 72125; 99284

== ENCOUNTER 2021-08-06 20:30 | Emergency (ER) | payer BC ==
[2021-08-06] MEDS ORDERED: LIDOCAINE VISCOUS 2% 15 ML CUP MUCOUS MEM ONE (23:05)
[2021-08-06] MEDS ORDERED: dexAMETHasone 2 MG TAB PO STA (23:06)
--- NOTE | 2021-08-06 23:12 | ED ---
ENT HPI - General Chief complaint: ENT Stated complaint: strep throat, swollen tonsils Time Seen by Provider: 08/06/21 22:41 Source: patient Mode of arrival: ambulatory Limitations: no limitations - History of Present Illness Initial comments: 5 old female who presents emergency Department with reported sore throat. States that it started yesterday. She noted white plaquing on her throat. Reports to difficulty swallowing. Patient also reports to headache and bodyaches. Denies any exposures to sick people. No fevers. Denies any neck pain or stiffness. No chest pain or shortness of breath. Patient has not attempted to take any medications for her symptoms. No concern for . 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 - Related Data Home Medications Medication Instructions Recorded Confirmed DULoxetine HCL [Cymbalta] 60 mg PO DAILY 12/17/18 12/29/18 Fludrocortisone [Florinef] 0.2 mg PO BID 12/17/18 12/29/18 Omeprazole 40 mg PO DAILY 12/17/18 12/29/18 ALPRAZolam [Xanax] 0.25 mg PO DAILY PRN 12/24/18 12/29/18 methylPREDNISolone [Medrol Dose See Taper PO DIRECTED 12/29/18 12/29/18 Pack] Previous Rx's Medication Instructions Recorded Albuterol Inhaler (Mhu) [Ventolin 1 - 2 puff INHALATION Q6HR PRN #1 12/29/18 Hfa Inhaler (Mhu)] inhaler Benzonatate [Tessalon Perles] 200 mg PO Q8H PRN #15 capsule 12/29/18 methylPREDNISolone Dose Pack 4 mg PO DIRECTED #21 packet 03/27/21 [Medrol Dose Pack] Azithromycin [Zithromax] 500 mg PO DAILY #4 tab 08/06/21 Lidocaine Viscous 2% [Xylocaine 10 ml MUCOUS MEM Q8HR #100 ml 08/06/21 Viscous] Allergies Allergy/AdvReac Type Severity Reaction Status Date / Time adhesive Allergy Rash/Hives Verified 08/06/21 20:37 amoxicillin Allergy Unknown Verified 08/06/21 20:37 Childhood Penicillins Allergy Unknown Verified 08/06/21 20:37 Childhood clindamycin AdvReac Abdominal Verified 08/06/21 20:37 Pain Poultry [[place]] AdvReac Abdominal Verified 08/06/21 20:37 Pain Sulfa (Sulfonamide AdvReac Abdominal Verified 08/06/21 20:37 Antibiotics) Pain Review of Systems ROS Statement: Those systems with pertinent positive or pertinent negative responses have been documented in the HPI. ROS Other: All systems not noted in ROS Statement are negative. Past Medical History Past Medical History: No Reported History Additional Past Medical History / Comment(s): POTs History of Any Multi-Drug Resistant Organisms: None Reported Past Surgical History: No Surgical Hx Reported Additional Past Surgical History / Comment(s): Endoscopy Past Psychological History: Anxiety, Depression Smoking Status: Current every day smoker Past Alcohol Use History: Occasional Past Drug Use History: None Reported General Exam Limitations: no limitations Course Vital Signs 08/06/21 08/06/21 20:37 23:32 Temperature 98.9 F 98.7 F Pulse Rate 131 H 102 H Respiratory 20 18 Rate Blood Pressure 124/79 127/80 O2 Sat by Pulse 99 99 Oximetry Medical Decision Making - Medical Decision Making Upon arrival patient was placed into hallway 10. Thorough history and physical exam is performed. Patient is swabbed for strep and Covid which are both negative. Patient has no signs of peritonsillar abscess. She is given a dose of dexamethasone, Viscous Lidocaine and azithromycin. Specimen will be sent for group a culture. Due to the significant white plaquing the patient will be placed on antibiotics for the next 4 days. Patient instructed to take Motrin and Tylenol alternating every 4 hours for pain control. We'll also be given viscous lidocaine for pain. She is to return to the emergency department for any new or worsening symptoms. Follow up with her doctor in 2-4 days. Patient agreed to the treatment plan and she is discharged home in stable condition - Lab Data Lab Results 08/06/21 08/06/21 Range/Units 20:45 20:45 Coronavirus (PCR) Not Detected (Not Detectd) Group A Strep Rapid Negative (Negative) Disposition Clinical Impression: Pharyngitis Disposition: HOME SELF-CARE Condition: Stable Instructions (If sedation given, give patient instructions): Pharyngitis (ED) Additional Instructions: Alternate taking Motrin and Tylenol for pain control. Take the antibiotic as directed. Return to the emergency room within any new or worsening symptoms. Follow up with your doctor in 2-4 days Prescriptions: Lidocaine Viscous 2% [Xylocaine Viscous] 10 ml MUCOUS MEM Q8HR #100 ml Azithromycin [Zithromax] 500 mg PO DAILY #4 tab Is patient prescribed a controlled substance at d/c from ED?: No Referrals: Nonstaff,Physician [Primary Care Provider] - 1-2 days Time of Disposition: 23:12
[2021-08-06] MEDS: AZITHROMYCIN 500 MG TAB PO STA ×2 (23:20→23:50)
[2021-08-06 23:53] VITALS: BP 127/80; PULSE 102; RESP 18; TEMP 98.7
== END 2021-08-06 23:35 | disposition home or self-care (01) ==
LOC: EC 20:30
DX: J02.9 Acute pharyngitis, unspecified (principal); Z20.822 Contact with and (suspected) exposure to COVID-19; F17.200 Nicotine dependence, unspecified, uncomplicated; Z79.51 Long term (current) use of inhaled steroids; Z79.52 Long term (current) use of systemic steroids; Z79.899 Other long term (current) drug therapy
CPT/HCPCS: 87081; 87430; 87635; 99283; J8540

== ENCOUNTER 2024-10-04 15:32 | Emergency (ER) | payer OTHER ==
--- NOTE | 2024-10-04 15:55 | ED ---
Female Urogenital HPI - General Source: patient, RN notes reviewed Mode of arrival: ambulatory Limitations: no limitations <ShawneeJuancho - Last Filed: 10/04/24 15:53> - General Source: patient, RN notes reviewed, old records reviewed Mode of arrival: ambulatory Limitations: no limitations - History of Present Illness MD Complaint: vaginal bleeding, pelvic pain -: days(s) Location: suprapubic Severity: mild Severity scale (1-10): 3 Quality: cramping Consistency: intermittent Improves with: none Worsens with: none Patient : Yes Associated Symptoms: vaginal bleeding - Related Data Sexually active: No <Estiven Crum - Last Filed: 10/04/24 18:43> - General Stated complaint: Vaginal bleeding(5 weeks preg) Time Seen by Provider: 10/04/24 15:47 - History of Present Illness Initial comments: Quick note: This is a G1, 29-year-old female presenting with worsening vaginal bleeding. Patient states she was recently seen at a hospital for similar symptoms, receiving ultrasound confirming she was 5 weeks advised follow-up with OB. Patient states she is unable to get in contact with her HISTOLOGIC TECHNICIAN with current appointment scheduled for mid October. Patient describes pain as menstrual cramping (4/10) radiating to back. (Juancho Mallory) This is a 29 female to the ER for reevaluation of vaginal pain and vaginal bleeding with known recent . Patient recently had outpatient beta-hCG that was around 300, coming for reevaluation today secondary to persistent bleeding pain and cramping. This will be patient's first (Estiven Crum) - Related Data Home Medications Medication Instructions Recorded Confirmed DULoxetine HCL [Cymbalta] 60 mg PO DAILY 12/17/18 12/29/18 Fludrocortisone [Florinef] 0.2 mg PO BID 12/17/18 12/29/18 Omeprazole 40 mg PO DAILY 12/17/18 12/29/18 ALPRAZolam [Xanax] 0.25 mg PO DAILY PRN 12/24/18 12/29/18 methylPREDNISolone [Medrol Dose See Taper PO DIRECTED 12/29/18 12/29/18 Pack] Previous Rx's Medication Instructions Recorded Albuterol Inhaler [Ventolin Hfa 1 - 2 puff INHALATION Q6HR PRN #1 06/11/19 Inhaler] inhaler Benzonatate [Tessalon Perles] 200 mg PO Q8H PRN #15 capsule 12/29/18 methylPREDNISolone Dose Pack 4 mg PO DIRECTED #21 packet 03/27/21 [Medrol Dose Pack] Azithromycin [Zithromax] 500 mg PO DAILY #4 tab 08/06/21 Lidocaine Viscous 2% [Xylocaine 10 ml MUCOUS MEM Q8HR #100 ml 08/06/21 Viscous] Allergies Allergy/AdvReac Type Severity Reaction Status Date / Time adhesive Allergy Rash/Hives Verified 10/04/24 16:10 amoxicillin Allergy Unknown Verified 10/04/24 16:10 Childhood Penicillins Allergy Unknown Verified 10/04/24 16:10 Childhood clindamycin AdvReac Abdominal Verified 10/04/24 16:10 Pain Poultry [[place]] AdvReac Abdominal Verified 10/04/24 16:10 Pain Sulfa (Sulfonamide AdvReac Abdominal Verified 10/04/24 16:10 Antibiotics) Pain Review of Systems ROS Other: All systems not noted in ROS Statement are negative. <Juancho Mallory - Last Filed: 10/04/24 15:53> ROS Other: All systems not noted in ROS Statement are negative. <Estiven Crum - Last Filed: 10/04/24 18:43> ROS Statement: Those systems with pertinent positive or pertinent negative responses have been documented in the HPI. Past Medical History Past Medical History: No Reported History Additional Past Medical History / Comment(s): POTs History of Any Multi-Drug Resistant Organisms: None Reported Past Surgical History: No Surgical Hx Reported Additional Past Surgical History / Comment(s): Endoscopy Past Psychological History: Anxiety, Depression Smoking Status: Current every day smoker Past Alcohol Use History: Occasional Past Drug Use History: None Reported <Juancoh Mallory - Last Filed: 10/04/24 15:53> General Exam <Juancho Mallory - Last Filed: 10/04/24 15:53> General appearance: alert, in no apparent distress Head exam: Present: atraumatic, normocephalic, normal inspection Eye exam: Present: normal appearance, PERRL, EOMI. Absent: scleral icterus, conjunctival injection, periorbital swelling ENT exam: Present: normal exam, mucous membranes moist Neck exam: Present: normal inspection. Absent: tenderness, meningismus, lymphadenopathy Respiratory exam: Present: normal lung sounds bilaterally. Absent: respiratory distress, wheezes, rales, rhonchi, stridor Cardiovascular Exam: Present: regular rate, normal rhythm, normal heart sounds. Absent: systolic murmur, diastolic murmur, rubs, gallop, clicks GI/Abdominal exam: Present: soft, normal bowel sounds. Absent: distended, tenderness, guarding, rebound, rigid Extremities exam: Present: normal inspection, full ROM, normal capillary refill. Absent: tenderness, pedal edema, joint swelling, calf tenderness Back exam: Present: normal inspection Neurological exam: Present: alert, oriented X3, CN II-XII intact Psychiatric exam: Present: normal affect, normal mood Skin exam: Present: warm, dry, intact, normal color. Absent: rash <Estiven Crum - Last Filed: 10/04/24 18:43> - General Exam Comments Initial Comments: Visual Physical Exam Vital signs reviewed General: Well-appearing, nontoxic. Patient appears mildly distressed Head: Normocephalic, atraumatic Eyes: PERRLA, EOMI ENT: Airway patent Chest: Nonlabored breathing Skin: No visual rash, normal skin tone Neuro: Alert and oriented 3 Musculoskeletal: No gross abnormalities (Juancho Mallory) Course <Estiven Crum - Last Filed: 10/04/24 18:43> Vital Signs 10/04/24 10/04/24 16:08 18:12 Temperature 98.2 F Pulse Rate 104 H 77 Respiratory 17 20 Rate Blood Pressure 117/82 114/69 O2 Sat by Pulse 99 99 Oximetry - Reevaluation(s) Reevaluation #1: 10/04/24 18:42 Medical records reviewed (Estiven Crum) Reevaluation #2: 10/04/24 18:42 Patient symptoms unchanged. No significant active bleeding here in the ER (Estiven Crum) Reevaluation #3: 10/04/24 18:42 Patient informed of results questions answered (Estiven Crum) Reevaluation #4: Was pt. sent in by a medical professional or institution (, PA, KAYAK MAKER, urgent care, hospital, or longterm...) When possible be specific @ -no Did you speak to anyone other than the patient for history (EMS, parent, family, police, friend...)? What history was obtained from this source @ -no Did you review nursing and triage notes (agree or disagree)? Why? @ -agree Are old charts reviewed (outside hosp., previous admission, EMS record, old EKG, old radiological studies, urgent care reports/EKG's, longterm records)? Report findings @ -yes Differential Diagnosis (chest pain, altered mental status, abdominal pain women, abdominal pain men, vaginal bleeding, weakness, fever, dyspnea, syncope, headache, dizziness, GI bleed, back pain, seizure, CVA, palpatations, mental health, musculoskeletal)? @ -prior EKG interpreted by me (3pts min.). @ -yes X-rays interpreted by me (1pt min.). @ -yes negative for acute disease CT interpreted by me (1pt min.). @ -no U/S interpreted by me (1pt. min.). @ -no What testing was considered but not performed or refused? (CT, X-rays, U/S, labs)? Why? @ -none What meds were considered but not given or refused? Why? @ -none Did you discuss the management of the patient with other professionals (professionals i.e. , PA, KAYAK MAKER, lab, RT, psych nurse, social work job titles, log truck driver, teacher, forest fire officer, family independence case manager)? Give summary @ -no Was smoking cessation discussed for >3mins.? @ -no Was critical care preformed (if so, how long)? @ -no Were there social determinants of health that impacted care today? How? (Homelessness, low income, unemployed, alcoholism, drug addiction, transportation, low edu. Level, literacy, decrease access to med. care, senior living, rehab)? @ -none Was there de-escalation of care discussed even if they declined (Discuss DNR or withdrawal of care, Hospice)? DNR status @ -no What co-morbidities impacted this encounter? (DM, HTN, Smoking, COPD, CAD, Cancer, CVA, ARF, Chemo, Hep., AIDS, mental health diagnosis, sleep apnea, morbid obesity)? @ -none Was patient admitted / discharged? Hospital course, mention meds given and route, prescriptions, significant lab abnormalities, going to OR and other pertinent info. @ - Undiagnosed new problem with uncertain prognosis? @ -no Drug Therapy requiring intensive monitoring for toxicity (Heparin, Nitro, Insulin, Cardizem)? @ -no Were any procedures done? @ -no Diagnosis/symptom? @ - Acute, or Chronic, or Acute on Chronic? @ -Acute Uncomplicated (without systemic symptoms) or Complicated (systemic symptoms)? @ -Complicated Side effects of treatment? @ -no Exacerbation, Progression, or Severe Exacerbation? @ -exacerbation Poses a threat to life or bodily function? How? (Chest pain, USA, GA, pneumonia, PE, COPD, DKA, ARF, appy, cholecystitis, CVA, Diverticulitis, Homicidal, Suicidal, threat to staff... and all critical care pts) @ -yes (Estiven Crum) Reevaluation #5: Differential Abdominal Pain Women: Appendicitis, Cholecystitis, diverticulosis, ischemic bowel, pancreatitis, hepatitis, UTI, gastroenteritis, AAA, incarcerated hernia, bowel obstruction, constipation, inflammatory bowel, hepatitis, peptic ulcer disease, splenic infarction, perforated viscus, vulvitis, ovarian torsion, PID, kidney stone, placenta abruption, this is not meant to be an all-inclusive list (Estiven Crum) Medical Decision Making <Juancho Mallory - Last Filed: 10/04/24 15:53> - Lab Data Result diagrams: 10/04/24 16:22 10/04/24 16:24 - Radiology Data Radiology results: report reviewed (Ultrasound shows normal IUP), image reviewed <Estiven Crum - Last Filed: 10/04/24 18:43> - Medical Decision Making I completed the quick note portion of this chart signed ÁNGELA Cota (Juancho Mallory) 29 female with vaginal bleeding in . This is miscarriage patient has downtrending beta-hCG, ultrasound was negative for acute disease showing no IUP and no retained products (Estiven Crum) - Lab Data Lab Results 10/04/24 10/04/24 10/04/24 Range/Units 16:19 16:19 16:22 WBC 6.7 (3.8-10.6) k/uL RBC 5.36 (3.80-5.40) m/uL Hgb 16.2 H (11.4-16.0) gm/dL Hct 50.0 H (34.0-46.0) % MCV 93.2 (80.0-100.0) fL MCH 30.2 (25.0-35.0) pg MCHC 32.4 (31.0-37.0) g/dL RDW 14.6 (11.5-15.5) % Plt Count 342 (150-450) k/uL MPV 7.7 Neutrophils % 49 % Lymphocytes % 32 % Monocytes % 10 % Eosinophils % 6 % Basophils % 1 % Neutrophils # 3.3 (1.3-7.7) k/uL Lymphocytes # 2.2 (1.0-4.8) k/uL Monocytes # 0.6 (0-1.0) k/uL Eosinophils # 0.4 (0-0.7) k/uL Basophils # 0.0 (0-0.2) k/uL Sodium (137-145) mmol/L Potassium (3.5-5.1) mmol/L Chloride (98-107) mmol/L Carbon Dioxide (22-30) mmol/L Anion Gap mmol/L BUN (7-17) mg/dL Creatinine (0.52-1.04) mg/dL Est GFR (CKD-EPI)AfAm (>60 ml/min/1.73 sqM) Est GFR (CKD-EPI)NonAf (>60 ml/min/1.73 sqM) Glucose (74-99) mg/dL Calcium (8.4-10.2) mg/dL Total Bilirubin (0.2-1.3) mg/dL AST (14-36) U/L ALT (4-34) U/L Alkaline Phosphatase (38-126) U/L Total Protein (6.3-8.2) g/dL Albumin (3.5-5.0) g/dL HCG, Quant mIU/mL Urine Color Red Urine Appearance Cloudy H (Clear) Urine RBC >182 H (0-5) /hpf Urine WBC 19 H (0-5) /hpf Ur Squamous Epith Cells 6 H (0-4) /hpf Urine Mucus Rare H (None) /hpf Urine HCG, Qual Detected (Not Detectd) Blood Type Blood Type Confirm Blood Type Recheck Bld Type Recheck Status 03/10/04/24 10/04/24 Range/Units 16:22 16:24 17:25 WBC (3.8-10.6) k/uL RBC (3.80-5.40) m/uL Hgb (11.4-16.0) gm/dL Hct (34.0-46.0) % MCV (80.0-100.0) fL MCH (25.0-35.0) pg MCHC (31.0-37.0) g/dL RDW (11.5-15.5) % Plt Count (150-450) k/uL MPV Neutrophils % % Lymphocytes % % Monocytes % % Eosinophils % % Basophils % % Neutrophils # (1.3-7.7) k/uL Lymphocytes # (1.0-4.8) k/uL Monocytes # (0-1.0) k/uL Eosinophils # (0-0.7) k/uL Basophils # (0-0.2) k/uL Sodium 139 (137-145) mmol/L Potassium 4.2 (3.5-5.1) mmol/L Chloride 105 (98-107) mmol/L Carbon Dioxide 22 (22-30) mmol/L Anion Gap 12 mmol/L BUN 8 (7-17) mg/dL Creatinine 0.63 (0.52-1.04) mg/dL Est GFR (CKD-EPI)AfAm >90 (>60 ml/min/1.73 sqM) Est GFR (CKD-EPI)NonAf >90 (>60 ml/min/1.73 sqM) Glucose 100 H (74-99) mg/dL Calcium 10.4 H (8.4-10.2) mg/dL Total Bilirubin 0.5 (0.2-1.3) mg/dL AST 36 (14-36) U/L ALT 49 H (4-34) U/L Alkaline Phosphatase 53 (38-126) U/L Total Protein 7.7 (6.3-8.2) g/dL Albumin 4.9 (3.5-5.0) g/dL HCG, Quant 234.5 mIU/mL Urine Color Urine Appearance (Clear) Urine RBC (0-5) /hpf Urine WBC (0-5) /hpf Ur Squamous Epith Cells (0-4) /hpf Urine Mucus (None) /hpf Urine HCG, Qual (Not Detectd) Blood Type A Positive Blood Type Confirm A Positive Blood Type Recheck No Previous Record Bld Type Recheck Status CABO Indicated Disposition <Juancho Mallory - Last Filed: 10/04/24 15:53> Is patient prescribed a controlled substance at d/c from ED?: No Time of Disposition: 17:45 <Estiven Crum - Last Filed: 10/04/24 18:43> Clinical Impression: Miscarriage Disposition: HOME SELF-CARE Condition: Fair Instructions (If sedation given, give patient instructions): Miscarriage (ED) Referrals: None,Stated [Primary Care Provider] - 1-2 days Nishi Mitchell MD [STAFF PHYSICIAN] - 1-2 days
[2024-10-04 16:10] VITALS: TEMP 98.2
[2024-10-04 16:32] LABS: Basophils % (A) 1 %; Eosinophils # (A) 0.4 k/uL (0-0.7); Eosinophils % (A) 6 %; HGB 16.2 gm/dL (11.4-16.0); Lymphocytes # (A) 2.2 k/uL (1.0-4.8); Lymphocytes % (A) 32 %; MCH 30.2 pg (25.0-35.0); MCHC 32.4 g/dL (31.0-37.0); MCV 93.2 fL (80.0-100.0); Mean Platelet Volume 7.7; Monocytes # (A) 0.6 k/uL (0-1.0); Monocytes % (A) 10 %; Neutrophils # (A) 3.3 k/uL (1.3-7.7); Neutrophils % (A) 49 %; Platelet Count 342 k/uL (150-450); RBC 5.36 m/uL (3.80-5.40); RDW 14.6 % (11.5-15.5); WBC 6.7 k/uL (3.8-10.6)
[2024-10-04 16:45] LABS: ALT 49 U/L (4-34); AST 36 U/L (14-36); African American GFR (CKD) >90 (>60 ml/min/1.73 sqM); Albumin 4.9 g/dL (3.5-5.0); Alkaline Phosphatase 53 U/L (38-126); Anion Gap 12 mmol/L; Blood Urea Nitrogen 8 mg/dL (7-17); Calcium 10.4 mg/dL (8.4-10.2); Carbon Dioxide 22 mmol/L (22-30); Chloride 105 mmol/L (98-107); Glucose 100 mg/dL (74-99); Non-African American GFR(CKD) >90 (>60 ml/min/1.73 sqM); Potassium 4.2 mmol/L (3.5-5.1); Sodium 139 mmol/L (137-145); Total Bilirubin 0.5 mg/dL (0.2-1.3); Total Protein 7.7 g/dL (6.3-8.2)
[2024-10-04 16:55] LABS: Mucus,Urine Rare /hpf; RBC,Urine >182 /hpf (0-5); Squamous Epithelial Cell,Urine 6 /hpf (0-4); WBC,Urine 19 /hpf (0-5)
[2024-10-04 16:56] LABS: Appearance,Urine Cloudy (Clear); Color,Urine Red
[2024-10-04 17:01] LABS: HCG,Quantitative Serum 234.5 mIU/mL
--- NOTE | 2024-10-04 17:10 | US ---
EXAMINATION TYPE: Transabdominal DATE OF EXAM: 10/04/2024 4:46 PM COMPARISON: NONE CLINICAL INDICATION: Female, 29 years old with history of Vaginal bleeding, 5-week ; spotting x 3 days - today passing clots and cramping TECHNIQUE: Transvaginal (TV) and Transabdominal (TA) with grayscale and color Doppler imaging includi ng first trimester . FINDINGS: EXAM MEASUREMENTS: GESTATIONAL AGE / DATING Physician Established: (5 weeks/0 days) EDC: 06/06/2025 Dates by LMP: (6 weeks/0 days) EDC: 05/30/2025 Dates by First Scan: No previous here (5 weeks/0 days) EDC: 06/06/2025 Dates by Current Scan for: No IUP seen at this time ( weeks/ days) EDC: MATERNAL ANATOMY Uterus: 7.1 x 4.6 x 4.8 cm Right Ovary: 2.9 x 1.3 x 2.0 cm Left Ovary: 3.8 x 1.8 x 2.6 cm Post CDS / Adnexa: Fluid seen Presence of free fluid: Yes Presence of corpus luteal cyst: Left ovary Presence of subchorionic bleed: NA GESTATION / SURVEY CRL: NA ( weeks/ days) Gestational Sac morphology: Abnormal Gestational Sac MSD: NA ( weeks/ days) Yolk Sac (normal less than 6mm): NA Cardiac Activity/Heart Rate: None bpm Rhythm: NA IUP: No cardiac activity noted on today's scan. Question demise. Nuchal Translucency 10-14wks (normal less than 3mm): NA Age Appropriate Anatomy Cord Insertion: NA Limbs: NA Calvarium: NA Date of LMP: 08/23/2024 Beta HcG (if available): 235 yesterday Thickened heterogenous endometrium, Gestational sac with ?yolk sac and pole seen within the low er uterine segment of the endometrium. IMPRESSION: No evidence of intrauterine gestational sac in this patient with a positive B-hCG. This can be seen i n early , ectopic and spontaneous . Follow up pelvic ultrasound in 5-7 day s and serial beta hCG studies are recommended. [facility], , 10/04/2024 5:08 PM
[2024-10-04 18:13] VITALS: BP 114/69; PULSE 77; RESP 20
== END 2024-10-04 18:13 | disposition home or self-care (01) ==
LOC: EC 15:32
DX: O03.9 Complete or unspecified spontaneous abortion without complication (principal); O99.331 Smoking (tobacco) complicating pregnancy, first trimester; F17.200 Nicotine dependence, unspecified, uncomplicated; Z88.0 Allergy status to penicillin; Z88.1 Allergy status to other antibiotic agents; Z88.2 Allergy status to sulfonamides; Z91.09 Other allergy status, other than to drugs and biological substances; Z91.018 Allergy to other foods; Z3A.01 Less than 8 weeks gestation of pregnancy
CPT/HCPCS: 36415; 76801; 76817; 80053; 81001; 81025; 84702; 85025; 86900; 86901; 87086; 93975; 99284